=== PATIENT | female | born 1990 | race Caucasian/White ===

== ENCOUNTER 2021-09-01 17:32 | Outpatient (CLI) | payer MEDICAID ==
--- NOTE | 2021-09-02 10:53 | XRAY Report ---
PROCEDURE: Lumbar Spine 3 View INDICATIONS: LOW BACK PX TECHNIQUE: 3 views of the lumbar spine were acquired. COMPARISON: None. FINDINGS: Bones: 5 [id number] vertebrae are present. There is normal bony alignment. There is approximat tammi 40 degrees of convex left thoracolumbar spine scoliosis. No vertebral body compression fractures. No suspicious bony lesions. Soft tissues: Overlying bowel gas pattern is normal. No suspicious soft tissue calcifications. IMPRESSION: Convex left thoracolumbar spine scoliosis. Reviewed by: Екатерина Garcia MD, PhD on 09/02/2021 10:52 AM [facility] Approved by: Екатерина Garcia MD, PhD on 09/02/2021 10:52 AM [facility] Station ID: [id number]
== END 2021-09-01 23:59 | disposition home or self-care (01) ==
LOC: DI.N 17:32
PROVIDERS: ATTEND Internal Medicine
DX: M54.50 Low back pain, unspecified (principal); M41.9 Scoliosis, unspecified

== ENCOUNTER 2021-11-07 08:00 | Outpatient (CLI) | payer MEDICAID ==
[2021-11-07 18:24] LABS: BACTERIAL VAGINOSIS DNA NEGATIVE (NEGATIVE); CANDIDA KRUSEI DNA NEGATIVE (NEGATIVE); TRICHOMONAS VAGINALIS DNA NEGATIVE (NEGATIVE)
[2021-11-07 18:25] LABS: CANDIDA GLABRATA DNA NEGATIVE (NEGATIVE); CANDIDA GROUP DNA POSITIVE (NEGATIVE)
== END 2021-11-07 08:01 | disposition home or self-care (01) ==
LOC: LAB.N 08:00
PROVIDERS: ATTEND Family Medicine
DX: N76.0 Acute vaginitis (principal)
CPT/HCPCS: 87661; 87801

== ENCOUNTER 2022-06-10 20:05 | Emergency (ER) | payer MEDICAID ==
[2022-06-10 20:12] VITALS: BP 145/106
--- NOTE | 2022-06-10 20:24 | ED Physician Documentation ---
PD HPI UPPER EXT INJURY - Stated complaint Stated Complaint: LT INDEX FINGER INJURY - Chief complaint Chief Complaint: Laceration - History obtained from History obtained from: Patient - Additonal information Additional information: Patient is a 31-year-old female with injury to left index finger That occurred just prior to arrival. She was peeling a preethi and accidentally peeled part of her nail. She is not on a blood thinner. Her last tetanus was 6 years ago. She denies injuries elsewhere. Review of Systems Constitutional: denies: Fever Cardiac: denies: Chest pain / pressure Respiratory: denies: Dyspnea GI: denies: Abdominal Pain Skin: reports: Laceration (s) Neurologic: denies: Headache PD PAST MEDICAL HISTORY - Allergies Allergies/Adverse Reactions: Allergies Allergy/AdvReac Type Severity Reaction Status Date / Time No Known Drug Allergies Allergy Verified 06/10/22 20:12 PD ED PE NORMAL - General General: Alert and oriented X 3, No acute distress, Well developed/nourished - HEENT HEENT: Atraumatic - Respiratory Respiratory: No respiratory distress - Derm Derm: Warm and dry - Extremities Extremities: Normal ROM s pain, Other (Abraded distal 1/3 nail of L index finger down to nail bed. ; normal ROM of digit; sensation intact.) Results - Vitals Vitals: Vital Signs - 24 hr 06/10/22 20:10 Temperature 36.2 C L Heart Rate 91 Respiratory 14 Rate Blood Pressure 145/106 H O2 Saturation 95 Oxygen O2 Source Room air Procedures - Laceration (location) Left index finger Length in cm: 1 Wound type: Irregular (Abrasion to distal nailbed) Wound preparation: Hibiclens, Irrigated copiously NS Skin layer closure: Dermabond Other: Patient tolerated well, No complications, Neurovascular intact, Dressing applied, Tetanus UTD PD MEDICAL DECISION MAKING - ED course ED course: Patient with injury to left index finger. Wound was cleaned and hemostasis was achieved with Dermabond. Patient is tetanus is up-to-date.No signs of tendon or bony injury. Patient advised on concerning symptoms to return for. Departure - Departure Disposition: 01 Home, Self Care Clinical Impression: Abrasion of left index finger Qualifiers: Encounter type: initial encounter Qualified Code(s): S60.411A - Abrasion of left index finger, initial encounter Condition: Stable Instructions: ED Laceration Ext Skin Glue Comments: You have a wound to your L index finger where the nail was abraded off. We used skin glue to help stop the bleeding and allow the wound to heal. Please keep the wound clean/dry. The glue will come off on its own in a few days. It make take some time for the nail to grow back. Forms: Activity restrictions Discharge Date/Time: 06/10/22 20:33
== END 2022-06-10 20:33 | disposition home or self-care (01) ==
LOC: ED 20:05
DX: S60.411A Abrasion of left index finger, initial encounter (principal); X58.XXXA Exposure to other specified factors, initial encounter; Y93.G1 Activity, food preparation and clean up
CPT/HCPCS: 12001; 99282

== ENCOUNTER 2023-01-25 09:35 | Outpatient (CLI) | payer MEDICAID ==
[2023-01-25 11:56] LABS: BASOPHILS % (AUTO) 0.6 %; EOSINOPHILS # (AUTO) 0.1 10^3/uL (0.0-0.7); EOSINOPHILS % (AUTO) 1.6 %; HCT - HEMATOCRIT 41.9 % (37.0-47.0); HGB - HEMOGLOBIN 13.4 g/dL (12.0-16.0); LYMPHOCYTES # (AUTO) 3.4 10^3/uL (1.5-3.5); LYMPHOCYTES % (AUTO) 49.2 %; MEAN CORPUSCULAR HEMOGLOBIN 28.5 pg (27.0-31.0); MEAN CORPUSCULAR VOLUME 89.1 fL (81.0-99.0); MEAN PLATELET VOLUME 9.4 fL (7.9-10.8); MONOCYTES # (AUTO) 0.3 10^3/uL (0.0-1.0); MONOCYTES % (AUTO) 3.9 %; NEUTROPHILS # (AUTO) 3.1 10^3/uL (1.5-6.6); NEUTROPHILS % (AUTO) 44.3 %; PLT - PLATELET COUNT 360 10^3/uL (130-450); RED CELL DISTRIBUTION WIDTH 12.9 % (12.0-15.0); WHITE BLOOD COUNT 6.9 x10^3/uL (4.8-10.8)
[2023-01-25 12:22] LABS: ALBUMIN 3.9 g/dL (3.2-5.5); ALBUMIN/GLOBULIN RATIO 1.1 (1.0-2.2); ALKALINE PHOSPHATASE 63 IU/L (42-121); ALT ALANINE AMINOTRANSFERASE 29 IU/L (10-60); AST ASPARTATE AMINOTRANSFERASE 27 IU/L (10-42); BILIRUBIN,TOTAL 0.4 mg/dL (0.2-1.0); BUN - BLOOD UREA NITROGEN 8 mg/dL (6-20); CARBON DIOXIDE - CO2 27 mmol/L (21-32); CHLORIDE 109 mmol/L (101-111); CHOL/HDL RATIO 3.7 (<4.4); CHOLESTEROL 123 mg/dL; CREATININE 0.7 mg/dL (0.4-1.0); GFR - MDRD 98 (>89); GLUCOSE 91 mg/dL (70-100); HDL CHOLESTEROL 33 mg/dL; LDL CHOLESTEROL,CALCULATED 58 mg/dL; LDL/HDL RATIO 1.8 (<4.4); POTASSIUM 4.1 mmol/L (3.5-5.0); SODIUM 141 mmol/L (135-145); TOTAL PROTEIN 7.5 g/dL (6.7-8.2); TRIGLYCERIDES 159 mg/dL; VLDL CHOLESTEROL 32 mg/dL
[2023-01-25 12:24] LABS: THYROID STIMULATING HORMONE 1.34 uIU/mL (0.34-5.60)
[2023-01-25 12:33] LABS: ESTIMATED AVERAGE GLUCOSE 117 mg/dL (70-100); HEMOGLOBIN A1c% 5.7 % (4.27-6.07)
== END 2023-01-25 09:36 | disposition home or self-care (01) ==
LOC: LAB.N 09:35
PROVIDERS: ATTEND Nurse Practitioner Family
DX: Z00.00 Encounter for general adult medical examination without abnormal findings (principal); R03.0 Elevated blood-pressure reading, without diagnosis of hypertension; E66.9 Obesity, unspecified
CPT/HCPCS: 36415; 80053; 80061; 83036; 83721; 84443; 85025

== ENCOUNTER 2023-03-24 18:51 | Emergency (ER) | payer MEDICAID ==
[2023-03-24] MEDS ORDERED: IBUPROFEN 600 MG TABLET PO STA (20:10)
--- NOTE | 2023-03-24 20:11 | ED Physician Documentation ---
History of Present Illness - Stated complaint Stated Complaint: LOWER BACK PX - Chief complaint Chief Complaint: Back Pain - History obtained from History obtained from: Patient - Additonal information Additional information: 32-year-old woman, previously healthy, presents with left lower back pain radiating to the left knee for the past 2 days as well as left neck pain that has improved since it started from rest 2 days ago. denies fever, urinary or fecal incontinence or retention, numbness, fnd, injury. Review of Systems Constitutional: denies: Fever : denies: Dysuria, Frequency, Unable to Void, Incontinent Musculoskeletal: reports: Back pain Neurologic: denies: Focal weakness, Numbness PD PAST MEDICAL HISTORY - Allergies Allergies/Adverse Reactions: Allergies Allergy/AdvReac Type Severity Reaction Status Date / Time No Known Drug Allergies Allergy Verified 03/24/23 18:58 PD ED PE NORMAL - Vitals Vital signs reviewed: Yes - General General: Alert and oriented X 3, No acute distress, Well developed/nourished - HEENT HEENT: Atraumatic, PERRL, EOMI - Neck Neck: No bony TTP - Back Back: No spinal TTP, Other (L lower back discomfort to palpation) - Derm Derm: Normal color, Warm and dry - Extremities Extremities: No deformity, Normal ROM s pain, Other (2+ DP and PT pulses. normal sensation and strength to extremities) - Neuro Neuro: Alert and oriented X 3, No motor deficit, No sensory deficit Results - Vitals Vitals: Vital Signs - 24 hr 03/24/23 18:54 Temperature 36.4 C L Heart Rate 85 Respiratory 17 Rate Blood Pressure 149/90 H O2 Saturation 100 Oxygen O2 Source Room air PD Medical Decision Making - ED course ED course: 32-year-old woman presents with left lower back strain without signs and symptoms of spinal impingement. Work note and oral analgesia provided. Symptomatic care discussed. Plan to follow-up with primary care provider.Return precautions given. Departure - Departure Disposition: 01 Home, Self Care Clinical Impression: Back pain Condition: Stable Instructions: ED Low Back Pain Injury Comments: You were seen in the emergency department for low back pain. Please take ibuprofen 600 mg every 6 hours as needed for pain. Findings for this are Motrin or Advil. You can also alternate pills with Tylenol (acetaminophen) 650 every 6 hours. Return to the ED if you have new or worsening symptoms or other concerns. Follow-up with your primary care provider Forms: Activity restrictions
[2023-03-24 20:25] VITALS: BP 130/90
== END 2023-03-24 20:22 | disposition home or self-care (01) ==
LOC: ED 18:51
DX: M54.50 Low back pain, unspecified (principal)
CPT/HCPCS: 99282; 99283; A9270

== ENCOUNTER 2024-01-31 09:29 | Outpatient (CLI) | payer OTHER ==
[2024-01-31 12:16] LABS: BASOPHILS # (AUTO) 0.1 10^3/uL (0.0-0.1); BASOPHILS % (AUTO) 1.1 %; EOSINOPHILS # (AUTO) 0.3 10^3/uL (0.0-0.7); HCT - HEMATOCRIT 42.2 % (37.0-47.0); HGB - HEMOGLOBIN 13.8 g/dL (12.0-16.0); LYMPHOCYTES # (AUTO) 2.2 10^3/uL (1.5-3.5); LYMPHOCYTES % (AUTO) 28.9 %; MEAN CORPUSCULAR HEMOGLOBIN 28.7 pg (27.0-31.0); MEAN CORPUSCULAR HGB CONC 32.7 g/dL (32.0-36.0); MEAN CORPUSCULAR VOLUME 87.7 fL (81.0-99.0); MEAN PLATELET VOLUME 9.7 fL (7.9-10.8); MONOCYTES # (AUTO) 0.5 10^3/uL (0.0-1.0); MONOCYTES % (AUTO) 6.8 %; NEUTROPHILS # (AUTO) 4.4 10^3/uL (1.5-6.6); NEUTROPHILS % (AUTO) 58.3 %; PLT - PLATELET COUNT 343 10^3/uL (130-450); RED BLOOD COUNT 4.81 10^6/uL (4.20-5.40); RED CELL DISTRIBUTION WIDTH 13.5 % (12.0-15.0); WHITE BLOOD COUNT 7.5 x10^3/uL (4.8-10.8)
[2024-01-31 12:46] LABS: ALBUMIN 4.1 g/dL (3.2-5.5); ALBUMIN/GLOBULIN RATIO 1.3 (1.0-2.2); ALKALINE PHOSPHATASE 54 IU/L (42-121); ALT ALANINE AMINOTRANSFERASE 25 IU/L (10-60); AST ASPARTATE AMINOTRANSFERASE 20 IU/L (10-42); BILIRUBIN,TOTAL 0.4 mg/dL (0.2-1.0); BUN - BLOOD UREA NITROGEN 7 mg/dL (6-20); CALCIUM 9.6 mg/dL (8.5-10.3); CARBON DIOXIDE - CO2 26 mmol/L (21-32); CHLORIDE 106 mmol/L (101-111); CHOL/HDL RATIO 4.5 (<4.4); CHOLESTEROL 144 mg/dL; CREATININE 0.7 mg/dL (0.6-1.3); GFR - MDRD 98 (>89); GLUCOSE 88 mg/dL (74-104); HDL CHOLESTEROL 32 mg/dL; LDL CHOLESTEROL,CALCULATED 58 mg/dL; LDL/HDL RATIO 1.8 (<4.4); POTASSIUM 4.1 mmol/L (3.5-4.5); SODIUM 137 mmol/L (135-145); TOTAL PROTEIN 7.3 g/dL (6.4-8.9); TRIGLYCERIDES 269 mg/dL (48-352); VLDL CHOLESTEROL 54 mg/dL
[2024-01-31 12:53] LABS: THYROID STIMULATING HORMONE 1.39 uIU/mL (0.34-5.60)
[2024-01-31 13:46] LABS: ESTIMATED AVERAGE GLUCOSE 120 mg/dL (70-100); HEMOGLOBIN A1c% 5.8 % (4.27-6.07)
== END 2024-01-31 09:30 | disposition home or self-care (01) ==
LOC: LAB.N 09:29
PROVIDERS: ATTEND Nurse Practitioner Family
DX: Z00.00 Encounter for general adult medical examination without abnormal findings (principal); E66.9 Obesity, unspecified
CPT/HCPCS: 36415; 80053; 80061; 83036; 83721; 84443; 85025

== ENCOUNTER 2024-03-15 08:00 | Outpatient (CLI) | payer OTHER | END 2024-03-15 23:59 | disposition home or self-care (01) | LOC: LAB.N 08:00 | PROVIDERS: ATTEND Physician Assistant | DX: R30.9 Painful micturition, unspecified (principal) | CPT/HCPCS: 87086 ==

== ENCOUNTER 2024-05-31 08:00 | Outpatient (CLI) | payer OTHER ==
[2024-05-31 19:01] LABS: H. PYLORIS ANTIGEN STL NEGATIVE (Negative)
== END 2024-05-31 23:59 | disposition home or self-care (01) ==
LOC: LAB.N 08:00
PROVIDERS: ATTEND Physician Assistant
DX: R10.13 Epigastric pain (principal); K21.9 Gastro-esophageal reflux disease without esophagitis
CPT/HCPCS: 87338